=== PATIENT | female | born 1970 | race Hispanic/Latino ===

== ENCOUNTER 2017-10-18 04:37 | Emergency (ER) | payer OTHER ==
[2017-10-18 04:42] VITALS: BMI 38.3
[2017-10-18] MEDS ORDERED: Morphine 4 mg/ml ISec IVP STA (05:01)
[2017-10-18] MEDS ORDERED: Sodium Chloride 0.9% 1,000 ML IV STA (05:01)
--- NOTE | 2017-10-18 05:05 | ED PDOC ---
"Arrival/HPI - General Chief Complaint: Abdominal Pain Time Seen by Provider: 10/18/17 04:51 Historian: Patient - History of Present Illness Narrative History of Present Illness (Text): 10/18/17 05:02 46 year old female, with no significant past medical history, who presents to the emergency department complaining of abdominal pain that radiates to the back this morning. Patient notes she woke up from her sleep with right sided abdominal pain. Patient vomited twice. Patient denies any fever, chills, chest pain, shortness of breath, diarrhea, neck pain, headache, dizziness, or any other complaints. Time/Duration: 4-6 hours Symptom Onset: Sudden Symptom Course: Unchanged Activities at Onset: Light Past Medical History - Provider Review Nursing Documentation Reviewed: Yes - Psychiatric Hx Substance Use: No - Surgical History Hx Appendectomy: Yes Hx Orthopedic Surgery: Yes (right knee) - Anesthesia Hx Anesthesia: Yes Hx Anesthesia Reactions: No Hx Malignant Hyperthermia: No Family/Social History - Physician Review Nursing Documentation Reviewed: Yes Family/Social History: Unknown Family HX Smoking Status: Never Smoked Hx Alcohol Use: No Hx Substance Use: No Allergies/Home Meds Allergies/Adverse Reactions: Allergies No Known Allergies Allergy (Verified 10/18/17 04:43) Review of Systems - Physician Review All systems were reviewed & negative as marked: Yes - Review of Systems Constitutional: Normal Eyes: Normal ENT: Normal Respiratory: Normal. absent: SOB, Cough Cardiovascular: Normal. absent: Chest Pain Gastrointestinal: Abdominal Pain, Vomiting. absent: Diarrhea Genitourinary Female: Normal. absent: Dysuria, Frequency, Hematuria, Urine Output Changes Musculoskeletal: Normal. absent: Back Pain, Neck Pain Skin: Normal. absent: Rash Neurological: Normal. absent: Headache, Dizziness Endocrine: Normal Hemo/Lymphatic: Normal Psychiatric: Normal Physical Exam Vital Signs Reviewed: Yes Vital Signs Temp Pulse Resp BP Pulse Ox 10/18/17 06:34 80 18 146/88 100 10/18/17 04:47 98 F 75 16 161/110 H 96 Temperature: Afebrile Blood Pressure: Hypertensive Pulse: Regular Respiratory Rate: Normal Appearance: Positive for: Well-Appearing, Non-Toxic, Comfortable Pain Distress: None Mental Status: Positive for: Alert and Oriented X 3 - Systems Exam Head: Present: Atraumatic, Normocephalic Pupils: Present: PERRL Extroacular Muscles: Present: EOMI Conjunctiva: Present: Normal Mouth: Present: Moist Mucous Membranes Neck: Present: Normal Range of Motion. No: Meningeal Signs, JVD Respiratory/Chest: Present: Clear to Auscultation, Good Air Exchange. No: Respiratory Distress, Accessory Muscle Use Cardiovascular: Present: Regular Rate and Rhythm, Normal S1, S2. No: Murmurs Abdomen: Present: Tenderness (RUQ and epigastric tenderness), Guarding, Other ( + Neri's sign). No: Distention, Peritoneal Signs Back: Present: CVA Tenderness Upper Extremity: Present: Normal Inspection. No: Cyanosis, Edema Lower Extremity: Present: Normal Inspection. No: Edema Neurological: Present: GCS=15, CN II-XII Intact, Speech Normal Skin: Present: Warm, Dry, Normal Color. No: Rashes Psychiatric: Present: Alert, Oriented x 3, Normal Insight, Normal Concentration Medical Decision Making ED Course and Treatment: 10/18/17 05:10 Impression: 46 year old female who presents to the emergency department complaining of right sided abdominal pain that radiates to the back. Differential Diagnosis included but are not limited to: cholecystitis vs. renal colic Plan: -- VBG -- Labs -- Pepcid -- Morphine -- Zofran -- Sodium Chloride -- Blood Culture -- Urine Culture -- Urinalysis -- Reassess and disposition Progress Notes: 10/18/17 06:32 Case discussed with surgical forceps fabricator, Kevin, based on prelim ultrasound report. Pending call back from Dr. Thompson, Surgical Attending. Zosyn IV ordered. Repeat BP 146/88. 10/18/17 06:37 Kevin, [employer] here to evaluation patient. Pending call back from Laurence. EXAM: US Abdomen Complete IMPRESSION: 1. Multiple gallstones with 4 mm gallbladder wall thickening gallbladder wall edema pericholecystic fluid and a 1.8 cm stone impacted in the neck of the gallbladder.There was right upper quadrant tenderness during the sonographic examination. Correlation with clinical data is recommended to evaluate for acute obstructive cholecystitis. SHWETA LANDRY | Final Radiology Report CONFIDENTIALITY STATEMENT This report is intended only for use by the referring physician, and only in accordance with law. If you received this in error, call [phone]. Page 2 of 2 2. Dilated common bile duct for patient's age measuring 6 mm. Thank you for allowing us to participate in the care of your patient. Dictated and Authenticated by: Nayeli Hubbard MD 10/18/2017 6:35 AM Eastern Time ([place] & [place]) 10/18/17 07:05 Leaving Against Medical Advice (AMA): The patient is choosing to leave against medical advice. I have personally explained to the patient that choosing to do so may result in permanent bodily harm or . I have discussed at great length that without further evaluation and monitoring there may be unforeseen circumstances and/or deterioration causing permanent bodily harm or as a result of their choice. The patient is alert, oriented, and shows the mental capacity to make clear decisions regarding the patients health care at this time. The patient continues to wish to leave against medical advice. In light of the patients decision to leave against medical advice, follow-up has been arranged and the patient is aware of the importance to following up as instructed. The patient has been advised that they should return to the emergency room immediately if they change their mind at any time, or if their condition begins to change or worsen in any way. 10/18/17 07:06 Discussed case in detail with Dr. Thompson, surgical attending, who requests for the patient to take Levaquin 750mg daily for 7 days and to follow up in his office in two days. - Critical Care Critical Care Minutes: 30 minutes - Lab Interpretations Lab Results: 10/18/17 05:00 10/18/17 06:20 Lab Results 10/18/17 06:20: Sodium 142, Chloride 105, Potassium 3.8, Carbon Dioxide 23, Anion Gap 17, BUN 12, Creatinine 0.5 L, Est GFR ( Amer) > 60, Est GFR ( Non-Af Amer) > 60, Random Glucose 127 H, Calcium 8.9, Magnesium 1.8, Total Bilirubin 0.6, AST 27, ALT 13, Alkaline Phosphatase 59, Total Protein 7.4, Albumin 4.3, Globulin 3.1, Albumin/Globulin Ratio 1.4, Lipase 66 10/18/17 05:15: Blood Type O POSITIVE, Antibody Screen Negative, BBK History Checked No verified bt 10/18/17 05:00: Urine Color Yellow, Urine Appearance Sl cloudy, Urine pH 7.0, Ur Specific [place] 1.020, Urine Protein 30 H, Urine Glucose (UA) Negative, Urine Ketones Negative, Urine Blood Trace-intact H, Urine Nitrate Negative, Urine Bilirubin Negative, Urine Urobilinogen 0.2, Ur Leukocyte Esterase Negative , Urine RBC 0 - 2, Urine WBC 0 - 2, Ur Epithelial Cells 0 - 2, Other Crystals Sulfa, Urine Bacteria Few 10/18/17 05:00: pO2 48, VBG pH 7.38, VBG pCO2 45.0, VBG HCO3 26.6, VBG Total CO2 28.0, VBG O2 Sat (Calc) 89.0 H, VBG Base Excess 1.0, VBG Potassium 5.2, Sodium 135.0, Chloride 101.0, Glucose 138 H, Lactate 1.9, FiO2 21.0, Venous Blood Potassium 5.2 10/18/17 05:00: PT 10.9, INR 0.96, APTT 32.6 10/18/17 05:00: WBC 12.4 H, RBC 5.76, Hgb 16.0, Hct 46.2, MCV 80.2, MCH 27.8, MCHC 34.6, RDW 13.8, Plt Count 310, MPV 10.4, Gran % 78.0 H, Lymph % (Auto) 14.3 L, [place] % (Auto) 6.4 H, Eos % (Auto) 1.0 L, Baso % (Auto) 0.3, Gran # 9.68 H, Lymph # (Auto) 1.8, [place] # (Auto) 0.8 H, Eos # (Auto) 0.1, Baso # (Auto) 0.04 - RAD Interpretation Radiology Orders: 10/18/17 05:03 ABDOMEN COMPLETE [US] Stat - Medication Orders Current Medication Orders: Sodium Chloride (Sodium Chloride 0.9%) 1,000 mls @ 100 mls/hr IV .Q10H STA Stop: 10/18/17 15:00 Last Admin: 10/18/17 05:31 Dose: 100 mls/hr eMAR Start Stop Document 10/18/17 05:31 AD (Rec: 10/18/17 05:31 AD [id number]) Intravenous Solution Start Date 10/18/17 Start Time 05:31 Discontinued Medications Famotidine (Pepcid 20mg/50ml Premix) 20 mg in 50 mls @ 100 mls/hr IVPB STAT STA Stop: 10/18/17 05:54 Last Admin: 10/18/17 05:30 Dose: 100 mls/hr eMAR Start Stop Document 10/18/17 05:30 AD (Rec: 10/18/17 05:30 AD [id number]) Intravenous Solution Start Date 10/18/17 Start Time 05:30 Piperacillin Sod/Tazobactam Sod (Zosyn 4.5 Gm In Ns 100ml) 4.5 gm in 100 mls @ 200 mls/hr IVPB STAT STA PRN Reason: Protocol Stop: 10/18/17 07:03 Last Admin: 10/18/17 07:02 Dose: 200 mls/hr eMAR Start Stop Document 10/18/17 07:02 AD (Rec: 10/18/17 07:02 AD [id number]) Intravenous Solution Start Date 10/18/17 Start Time 07:02 Morphine Sulfate (Morphine) 4 mg IVP STAT STA Stop: 10/18/17 05:02 Last Admin: 10/18/17 05:30 Dose: 4 mg MAR Pain Assessment Document 10/18/17 05:30 AD (Rec: 10/18/17 05:31 AD [id number]) Pain Reassessment Is this a pain reassessment? No Presence of Pain Presence of Pain Yes Pain Scale Used Pain Scale Used Numeric Description Intensity of Pain at present 10 IVP Administration Document 10/18/17 05:30 AD (Rec: 10/18/17 05:31 AD [id number]) Charges for Administration # of IVP Administrations 1 Ondansetron HCl (Zofran Inj) 4 mg IVP STAT STA Stop: 10/18/17 05:02 Last Admin: 10/18/17 05:31 Dose: 4 mg IVP Administration Document 10/18/17 05:31 AD (Rec: 10/18/17 05:31 AD [id number]) Charges for Administration # of IVP Administrations 1 - Scribe Statement The provider has reviewed the documentation as recorded by the Scribe Tammie Mosley All medical record entries made by the Scribe were at my direction and personally dictated by me. I have reviewed the chart and agree that the record accurately reflects my personal performance of the history, physical exam, medical decision making, and the department course for this patient. I have also personally directed, reviewed, and agree with the discharge instructions and disposition. Disposition/Present on Arrival - Present on Arrival Any Indicators Present on Arrival: No History of DVT/PE: No History of Uncontrolled Diabetes: No Urinary Catheter: No History of Decub. Ulcer: No History Surgical Site Infection Following: None - Disposition Have Diagnosis and Disposition been Completed?: Yes Diagnosis: Abdominal pain, Acute cholecystitis Disposition: AGAINST MEDICAL ADVICE Disposition Time: 06:34 Patient Plan: Admission, Observation Patient Problems: Current Active Problems Problem Status Onset Abdominal pain Acute Acute cholecystitis Acute Condition: GUARDED Discharge Instructions (ExitCare): Gallstones Additional Instructions: Ms Landry, thank you for letting us take care of you today. Your provider was Dr. Fine. You were treated for Acute Cholecysitis. The emergency medical care you received today was directed at your acute symptoms. If you were prescribed any medication, please fill it and take as directed. It may take several days for your symptoms to resolve. Return to the Emergency Department if your symptoms worsen, do not improve, or if you have any other problems. MAKE SURE TO FOLLOW UP WITH DR. THOMPSON'S OFFICE ON SATURDAY, OCTOBER 20, 2018 Please contact your doctor or call one of the physicians/clinics you have been referred to that are listed on the Patient Visit Information form that is included in your discharge packet. Bring any paperwork you were given at discharge with you along with any medications you are taking to your follow up visit. Our treatment cannot replace ongoing medical care by a primary care provider (PCP) outside of the emergency department. Thank you for allowing the [facility] team to be part of your care today. If you had an X-Ray or CT scan: A Radiologist will review the ED reading if any change in treatment is needed we will contact you. If you had a blood, urine, or wound culture: It will take several days for the results, if any change in treatment is needed we will contact you. If you had an STI test: It will take 48 hours for the results. Please call after 1 week if you have not heard back. Prescriptions: Levofloxacin [Levaquin] 750 mg PO DAILY #7 tablet Referrals: Daniel Thompson MD [Medical Doctor] - Follow up with primary Forms: [email or web address] (German), WORK NOTE"
[2017-10-18] MEDS ORDERED: Famotidine 20mg/50ml 20 MG/50 ML BAG IVPB STA (05:25)
[2017-10-18 05:36] LABS: VENOUS BLOOD GAS PO2 48 mm/Hg (30-55); VENOUS BLOOD PH 7.38 (7.32-7.43)
[2017-10-18 05:40] LABS: BASO # 0.04 K/mm3 (0.0-2.0); BASO % 0.3 % (0.0-3.0); EOS # 0.1 (0.0-0.7); GRAN # 9.68 (1.4-6.5); LYMPH # 1.8 (1.2-3.4); LYMPH % 14.3 % (22.0-35.0); MEAN CELL VOLUME 80.2 fl (80.0-105.0); MEAN CORPUSCULAR HEMOGLOBIN 27.8 pg (25.0-35.0); MEAN CORPUSCULAR HGB CONC 34.6 g/dl (31.0-37.0); MEAN PLATELET VOLUME 10.4 fl (7.0-11.0); MONO # 0.8 (0.1-0.6); MONO % 6.4 % (1.0-6.0); RBC 5.76 10^6/uL (3.5-6.1); RED CELL DISTRIBUTION WIDTH 13.8 % (11.5-14.5); WHITE BLOOD COUNT 12.4 10^3/ul (4.5-11.0)
[2017-10-18 05:46] LABS: INR 0.96 (0.93-1.08); PARTIAL THROMBOPLASTIN TIME 32.6 Seconds (25.1-36.5); PROTHROMBIN TIME 10.9 SECONDS (9.4-12.5)
[2017-10-18 06:01] LABS: URINE BILIRUBIN NEGATIVE (NEGATIVE); URINE BLOOD TRACE-INTACT (NEGATIVE); URINE GLUCOSE (UA) NEGATIVE (NEGATIVE); URINE LEUKOCYTE ESTERASE NEGATIVE Leu/uL (NEGATIVE); URINE PROTEIN 30 mg/dL (<30 mg/dL); URINE UROBILINOGEN 0.2 E.U./dL (<1 E.U./dL)
[2017-10-18 06:33] LABS: URINE COLOR YELLOW (YELLOW)
[2017-10-18 06:34] VITALS: RESP 18
[2017-10-18 06:34] LABS: URINE APPEARANCE SL CLOUDY (CLEAR); URINE EPITHELIAL CELLS 0 - 2 /hpf (0-5); URINE OTHER CRYSTALS SULFA /hpf; URINE RBC 0 - 2 /hpf (0-2); URINE WBC 0 - 2 /hpf (0-6)
[2017-10-18] MEDS ORDERED: Piperacill/Tazo 4.5gm in NS 4.5 GM/100 ML BAG IVPB STA (06:34)
[2017-10-18 06:35] LABS: URINE BACTERIA FEW (NEG)
--- NOTE | 2017-10-18 06:35 | US ---
EXAM: US Abdomen Complete CLINICAL HISTORY: 46 years old, female; Pain; Other: Ruq; Additional info: Ruq +murphys R/O cholcystitis; R cvat R/O kidneyst TECHNIQUE: Real-time ultrasound of the abdomen (complete) with image documentation. COMPARISON: No relevant prior studies available. FINDINGS: Artifacts: Limited due to bowel gas shadowing. Limited due to shadowing from the ribs. Liver: Heterogeneous fatty liver measuring 20 cm. Hepatomegaly. There is hepatic pedal flow in the portal vein. Gallbladder: Multiple gallstones with 4 mm gallbladder wall thickening gallbladder wall edema pericholecystic fluid and a 1.8 cm stone impacted in the neck of the gallbladder.There was right upper quadrant tenderness during the sonographic examination. Common bile duct: Dilated common bile duct for patient's age measuring 6 mm. No stones. Pancreas: The pancreas is not well-seen. Kidneys: The right kidney measures 12.5 x 5.7 x 6.8 cm. The left kidney measures 13.2 x 5.1 x 7.6 cm. Multiple right renal cysts. Right renal calcifications. The mid posterior cyst measures 2.1 cm in the upper pole renal cyst measures 2.1 cm in its maximum dimension. Right renal stones. No hydronephrosis. Spleen: The spleen measures 5.5 x 4.6 x 4.6 cm. Aorta: Limited visualization of the aorta secondary to bowel gas. Inferior vena cava: Unremarkable. IMPRESSION: 1. Multiple gallstones with 4 mm gallbladder wall thickening gallbladder wall edema pericholecystic fluid and a 1.8 cm stone impacted in the neck of the gallbladder.There was right upper quadrant tenderness during the sonographic examination. Correlation with clinical data is recommended to evaluate for acute obstructive cholecystitis. 2. Dilated common bile duct for patient's age measuring 6 mm.
[2017-10-18 06:52] LABS: ALB/GLOB RATIO 1.4 (1.1-1.8); ALBUMIN 4.3 g/dL (3.0-4.8); CALCIUM 8.9 mg/dL (8.4-10.5); GFR AFRICAN-AMERICAN > 60; GFR NON-AFRICAN AMERICAN > 60; LIPASE 66 U/L (23-300)
[2017-10-18 06:53] LABS: ALT/SGPT 13 U/L (7-56); AST/SGOT 27 U/L (14-36); BLOOD UREA NITROGEN 12 mg/dL (7-21)
--- NOTE | 2017-10-18 06:59 | CP.PCM.CON ---
History of Present Illness - History of Present Illness History of Present Illness: Generaal Surgery Consult for Dr. Dang Reason for consult: Acute cholecystitis 46 F with no PMH presents to [facility] with complain of abdomnial pain and nausea/ vomiting. Patient was seen and evaluated in the ED. Patient states the she woke up around 1:00 AM with abdominal pain. She then preceded to have an episode of nausea/vomiting with NBNB emesis. Patient states she had dinner around 17:00 at an [place] [employer] restaurant where she ate pasta. She reports to never have experienced these symptoms in the past. Her pain had gotten progressively worse overnight and decided to come to the hospital. She rates pain as severe. She describes pain as constant and sharp located in RUQ without radiation. She denies any alleviating factors but states that eating/drinking, movement and palpation exacerbates her pain. Denies fever/chills, chest pain, SOB, palpitations, diarrhea, constipation, incontinence, or urinary symptoms. PMH: denies Meds: denies Allergy: NKDA PSH: denies FH: denies Social: denies tobacco/EtOH/illicit drug use, lives with boyfriend Review of Systems - Review of Systems All systems: reviewed and no additional remarkable complaints except (as per HPI ) Past Patient History - Past Social History Smoking Status: Never Smoked - PSYCHIATRIC Hx Substance Use: No - SURGICAL HISTORY Hx Appendectomy: Yes Hx Orthopedic Surgery: Yes (right knee) - ANESTHESIA Hx Anesthesia: Yes Hx Anesthesia Reactions: No Hx Malignant Hyperthermia: No Meds Home Medications: Home Medication List Medication Instructions Recorded Confirmed Type Levofloxacin [Levaquin] 750 mg PO DAILY #7 tablet 10/18/17 Rx Allergies/Adverse Reactions: Allergies Allergy/AdvReac Type Severity Reaction Status Date / Time No Known Allergies Allergy Verified 10/18/17 04:43 - Medications Medications: Current Medications Sodium Chloride (Sodium Chloride 0.9%) 1,000 mls @ 100 mls/hr IV .Q10H STA Stop: 10/18/17 15:00 Last Admin: 10/18/17 05:31 Dose: 100 mls/hr Piperacillin Sod/Tazobactam Sod (Zosyn 4.5 Gm In Ns 100ml) 4.5 gm in 100 mls @ 200 mls/hr IVPB STAT STA PRN Reason: Protocol Stop: 10/18/17 07:03 Physical Exam - Constitutional Appears: Other (uncomfortable) - Head Exam Head Exam: ATRAUMATIC, NORMOCEPHALIC - Eye Exam Eye Exam: EOMI, Normal appearance. absent: Scleral icterus Pupil Exam: PERRL - ENT Exam ENT Exam: Mucous Membranes Moist - Respiratory Exam Respiratory Exam: NORMAL BREATHING PATTERN - Cardiovascular Exam Cardiovascular Exam: REGULAR RHYTHM - GI/Abdominal Exam GI & Abdominal Exam: Normal Bowel Sounds, Soft, Tenderness (RUQ). absent: Distended, Firm, Guarding, Rebound, Rigid Additional comments: (+) Neri's sign - Extremities Exam Extremities exam: Positive for: normal capillary refill, pedal pulses present. Negative for: calf tenderness - Back Exam Back exam: absent: CVA tenderness (L), CVA tenderness (R) - Neurological Exam Neurological exam: Alert, CN II-XII Intact, Oriented x3 - Psychiatric Exam Psychiatric exam: Normal Affect, Normal Mood - Skin Skin Exam: Dry, Intact, Normal Color, Warm Results - Vital Signs Recent Vital Signs: Last Vital Signs Temp 98 F 10/18/17 04:47 Pulse 80 10/18/17 06:34 Resp 18 10/18/17 06:34 BP 146/88 10/18/17 06:34 Pulse Ox 100 10/18/17 06:34 - Labs Result Diagrams: 10/18/17 05:00 10/18/17 06:20 Labs: Laboratory Results - last 24 hr 10/18/17 10/18/17 10/18/17 05:00 05:00 05:00 WBC 12.4 H RBC 5.76 Hgb 16.0 Hct 46.2 MCV 80.2 MCH 27.8 MCHC 34.6 RDW 13.8 Plt Count 310 MPV 10.4 Gran % 78.0 H Lymph % (Auto) 14.3 L [place] % (Auto) 6.4 H Eos % (Auto) 1.0 L Baso % (Auto) 0.3 Gran # 9.68 H Lymph # (Auto) 1.8 [place] # (Auto) 0.8 H Eos # (Auto) 0.1 Baso # (Auto) 0.04 PT 10.9 INR 0.96 APTT 32.6 pO2 48 VBG pH 7.38 VBG pCO2 45.0 VBG HCO3 26.6 VBG Total CO2 28.0 VBG O2 Sat (Calc) 89.0 H VBG Base Excess 1.0 VBG Potassium 5.2 Sodium 135.0 Chloride 101.0 Glucose 138 H Lactate 1.9 FiO2 21.0 Potassium Carbon Dioxide Anion Gap BUN Creatinine Est GFR ( Amer) Est GFR (Non-Af Amer) Random Glucose Calcium Magnesium Total Bilirubin AST ALT Alkaline Phosphatase Total Protein Albumin Globulin Albumin/Globulin Ratio Lipase Venous Blood Potassium 5.2 Urine Color Urine Appearance Urine pH Ur Specific [place] Urine Protein Urine Glucose (UA) Urine Ketones Urine Blood Urine Nitrate Urine Bilirubin Urine Urobilinogen Ur Leukocyte Esterase Urine RBC Urine WBC Ur Epithelial Cells Other Crystals Urine Bacteria Blood Type Antibody Screen BBK History Checked 10/18/17 10/18/17 10/18/17 05:00 05:15 06:20 WBC RBC Hgb Hct MCV MCH MCHC RDW Plt Count MPV Gran % Lymph % (Auto) [place] % (Auto) Eos % (Auto) Baso % (Auto) Gran # Lymph # (Auto) [place] # (Auto) Eos # (Auto) Baso # (Auto) PT INR APTT pO2 VBG pH VBG pCO2 VBG HCO3 VBG Total CO2 VBG O2 Sat (Calc) VBG Base Excess VBG Potassium Sodium 142 Chloride 105 Glucose Lactate FiO2 Potassium 3.8 Carbon Dioxide 23 Anion Gap 17 BUN 12 Creatinine 0.5 L Est GFR ( Amer) > 60 Est GFR (Non-Af Amer) > 60 Random Glucose 127 H Calcium 8.9 Magnesium 1.8 Total Bilirubin 0.6 AST 27 ALT 13 Alkaline Phosphatase 59 Total Protein 7.4 Albumin 4.3 Globulin 3.1 Albumin/Globulin Ratio 1.4 Lipase 66 Venous Blood Potassium Urine Color Yellow Urine Appearance Sl cloudy Urine pH 7.0 Ur Specific [place] 1.020 Urine Protein 30 H Urine Glucose (UA) Negative Urine Ketones Negative Urine Blood Trace-intact H Urine Nitrate Negative Urine Bilirubin Negative Urine Urobilinogen 0.2 Ur Leukocyte Esterase Negative Urine RBC 0 - 2 Urine WBC 0 - 2 Ur Epithelial Cells 0 - 2 Other Crystals Sulfa Urine Bacteria Few Blood Type O POSITIVE Antibody Screen Negative BBK History Checked No verified bt Assessment & Plan - Assessment and Plan (Free Text) Assessment: 46 F with acute cholecystitis Plan: -NPO -IV antibiotics -IV fluids -Analgesics/Anti-emetics PRN -Plan for laparoscopic cholecystectomy -Will discuss with Dr. Laurence Galo PGY1
[2017-10-18 07:27] VITALS: BP 143/89; PULSE 76; TEMP 98.6; O2SAT 99
== END 2017-10-18 07:27 | disposition left against medical advice (07) ==
LOC: ED 04:37
DX: K81.0 Acute cholecystitis (principal); R10.9 Unspecified abdominal pain
CPT/HCPCS: 76700; 80053; 81001; 82803; 83690; 83735; 85025; 85610; 85730; 86850; 86900; 87040; 87086; 96374; 96375; 99285; J2270; J2405; J2543; J7040